=== PATIENT | female | born 1985 | race African-American/Black ===

== ENCOUNTER 2022-02-20 00:16 | Day surgery (SDC) | payer BC, SELFPAY ==
[2022-02-14 13:10] VITALS: BMI 49.6
--- NOTE | 2022-02-14 13:14 | PC.NURSE ---
Report to the Outpatient Waiting Room, entrance under the green pavilion located off [facility], at time 0630 on date 02/20/22. Planned Procedure Time: 0830. Time changes happen often and if your time is changed the preop area will call you the afternoon before. - You and your visitor will be asked to self-screen and do not enter if you have any COVID symptoms. - We encourage only one visitor and NO visitors under age 16 are allowed at this time. Your visitor will receive communication by the phone number that is given day of service. - The patient visitor is requested to social distance or may leave the building when not with patient due to restrictions. - A mask is OPTIONAL within the hospital. Patients may have clear liquids (water, carbonated beverages, clear teas, apple juice) until 3 hours prior to surgery with a maximum of 20 ounces. - No food from midnight until time of surgery Take the following medications with a SIP of water the morning of surgery: TOPIRAMATE, INHALER IF NEEDED Medications to discontinue per physician: VITAMINS/SUPPLEMENTS Date to take last dose: 02/16/22 Please no make-up, nail thai, hairspray, perfume, deodorant, or body powder the day of surgery. No jewelry (including any body piercings) or valuables the day of surgery, leave them at home. Please take a shower or bath the night before, or the morning of, surgery with an antibacterial soap. Wear comfortable, loose fitting clothing. - Jewelry must be removed prior to entering the operating room. Rings and piercings that are not removed may be cut off. - The hospital will not accept responsibility for valuables. - Please leave all valuables, including medications, at home the day of surgery. If you are going home after surgery, a licensed dump truck driver off highway must drive you home. - NO public transportation without another adult. - We recommend that an adult stay with you for 24 hours following discharge. - We also recommend that you do not drive, make important decision, drink alcoholic beverages, or take any drugs that were not prescribed by your health care provider for at least 24 hours after your discharge time. Follow any additional instructions given to you from your surgeon. If you or anyone in your household have experienced Covid symptoms in the past week, please notify your surgeon or the nurse liaison at the phone number below for possible testing. Telephone instructions given to PT - RAIN TERRY and asked if any additional questions and then verbalized understanding. Patient advised to call surgeon office or pre surgery nurse liaison [phone] if any additional questions.
[2022-02-20] MEDS: ACETAMINOPHEN 500 MG TABLET 1000 MG PO (06:31)
[2022-02-20] MEDS: LACTATED RINGERS 1,000 ML 30 ML IV CONT (06:45)
[2022-02-20 06:53] LABS: Hematocrit 36.9 % (37.0-47.0)
[2022-02-20 06:56] VITALS: BP 130/91; PULSE 77; RESP 16; TEMP 37.1; O2SAT 100
--- NOTE | 2022-02-20 07:09 | P.PNAN_ITS ---
Anes - Initial Pre Proc Eval Procedure: Operation Date: 02/20/22 08:30 Proposed Procedures p Hysteroscopy with Dilation and Curettage, Possible Myosure - Anjelica Shukla MD Date/Time: 02/20/22 07:09 Surgeon: Anjelica Shukla MD Pre Op Diagnosis: Menorrhagia, Fibroids Patient Data Age: 37 Gender: F Height: 1.6 m Weight: 134 kg Last Vital Signs Temp 37.1 C 02/20/22 06:56 Pulse 77 02/20/22 06:56 Resp 16 02/20/22 06:56 BP 130/91 H 02/20/22 06:56 Pulse Ox 100 02/20/22 06:56 O2 Del Method Room Air 02/20/22 06:56 Allergies Allergy/AdvReac Type Severity Reaction Status Date / Time corn Allergy Anaphylaxis Verified 02/20/22 06:54 Home Medications Medication Instructions Recorded Confirmed Type albuterol sulfate 90 mcg/actuation 1 inh inhalation Q4H PRN 02/14/22 02/20/22 History aerosol inhaler Bronchospasm cholecalciferol (vitamin D3) 125 125 mcg PO DAILY 02/14/22 02/20/22 History mcg (5,000 unit) tablet (Vitamin D3) dupilumab 300 mg/2 mL subcutaneous 300 mg subcut [id number] 02/14/22 02/20/22 History pen injector (Dupixent) ferrous sulfate 325 mg (65 mg 325 mg PO DAILY 02/14/22 02/20/22 History iron) tablet (Iron (ferrous sulfate)) topiramate 100 mg tablet 100 mg PO BID 02/14/22 02/20/22 History zinc acetate 50 mg (zinc) capsule 50 mg PO DAILY 02/14/22 02/20/22 History Laboratory Tests 02/20/22 06:30 Hgb 12.0 g/dL g/dL (12.0-15.0) Hct 36.9 % L % (37.0-47.0) Patient hx anesthesia problems: none Family hx anesthesia problems: none Results Review: All pre-operative results and documents have been reviewed as part of the pre- operative evaluation. [facility] Past Medical History Medical History (Updated 02/20/22 @ 07:10 by Javier Garcia DO) Anemia Anxiety Asthma Social History Social History Smoking status: Never smoker Alcohol intake: never Substance use: never Substance use type: does not use Living arrangements: with family Spiritual care concerns: No Anes - Eval Final PreProcedure Day of Procedure 02/20/22 07:09 Patient weight: super morbidly obese Heart: regular rate and rhythm Lungs: clear to auscultation Airway: Mallampati scale class II Neurological: alert and oriented Last oral intake: >/= 8 hours ASA classification: III Emergent: no Anesthetic plan: proceed Anesthesia type and monitoring: general LMA and standard monitoring Results Review: All pre-operative results and documents have been reviewed as part of the pre- operative evaluation. Informed Consent: The patient's anesthetic plan and its attendant risks and benefits were discussed with the patient/family/POA. Questions were solicited and answers provided to the satisfaction of the patient/family/POA.
--- NOTE | 2022-02-20 07:29 | WPDHPUPDATE1 ---
History and Physical Update Update Date/Time: 02/20/22 07:29 History and Physical has been reviewed, including an updated exam of the patient. There are NO changes in the patient's condition. Risks, benefits, and alternatives have been discussed and questions answered. Patient agrees to proceed with procedure.
--- NOTE | 2022-02-20 07:30 | PM.HPGS ---
History of Present Illness History of Present Illness Consent: Risks, benefits, and alternatives have been discussed and questions answered. Patient agrees to proceed with procedure. Chief complaint: Menorrhagia, Fibroids Narrative: Aguila Bhardwaj is a 37 year old female With heavy and prolonged cycles. Pelvic ultrasound shows a fibroid abutting the endometrium. Was recommended to proceed with D&C hysteroscopy and possible MyoSure. Risks of infection, bleeding, perforation, and fluid imbalance were reviewed. Possible pathology was discussed. Patient voices understanding and agrees to proceed. Review of Systems Review of Systems: not repeated day of surgery; patient states no changes in status [facility] Past Medical History Medical History (Updated 02/20/22 @ 07:31 by Anjelica Shukla MD) Anxiety Asthma Depression Social History Social History Smoking status: Never smoker Alcohol intake: never Substance use: never Substance use type: does not use Living arrangements: with family Spiritual care concerns: No Meds Home Medications and Allergies Home Medications Medication Instructions Recorded Confirmed Type albuterol sulfate 90 mcg/actuation 1 inh inhalation Q4H PRN 02/14/22 02/20/22 History aerosol inhaler Bronchospasm cholecalciferol (vitamin D3) 125 125 mcg PO DAILY 02/14/22 02/20/22 History mcg (5,000 unit) tablet (Vitamin D3) dupilumab 300 mg/2 mL subcutaneous 300 mg subcut [id number] 02/14/22 02/20/22 History pen injector (Dupixent) ferrous sulfate 325 mg (65 mg 325 mg PO DAILY 02/14/22 02/20/22 History iron) tablet (Iron (ferrous sulfate)) topiramate 100 mg tablet 100 mg PO BID 02/14/22 02/20/22 History zinc acetate 50 mg (zinc) capsule 50 mg PO DAILY 02/14/22 02/20/22 History Allergies Allergy/AdvReac Type Severity Reaction Status Date / Time corn Allergy Anaphylaxis Verified 02/20/22 06:54 Vital Signs Vital Signs - 24 hr 02/20/22 06:56 Temperature 98.7 F Pulse Rate 77 Respiratory Rate 16 Blood Pressure 130/91 H Pulse Oximetry 100 Oxygen Delivery Room Air Exam Const: General: healthy appearing and alert Orientation/consciousness: patient oriented x3 Resp: Effort & Inspection: normal respiratory effort GI: GI Palp: Yes Soft to palpation, No Tenderness to palpation present (GI) and No Palpable mass present : External Female Exam: normal external appearance Speculum Exam - Vagina: normal appearance of the vagina and normal vaginal discharge Speculum Exam - Cervix: normal appearance of the cervix Bimanual exam- vagina & uterus: uterine size normal and consistency normal Bimanual Exam- Adnexa, other: normal adnexae and No adnexal tenderness Neuro: General: patient oriented x3 Assessment and Plan Assessment and plan (1) Menorrhagia: Code(s): N92.0 - Excessive and frequent menstruation with regular cycle Status: Acute Assessment and Plan: plan is to proceed with D&C hysteroscopy and possible MyoSure (2) G6PD deficiency: Code(s): D75.A - Bnlnorw-8-fomigwffg dehydrogenase (G6PD) deficiency without anemia Status: Acute
[2022-02-20] MEDS: LIDOCAINE HCL 1% PF 30 ML VIAL 10 ML INFILTRATE (08:39)
--- NOTE | 2022-02-20 08:56 | W.PM.PROC2 ---
Procedure Note - Detailed Date of Procedure 02/20/22 Pre-op Diagnosis Menorrhagia, Fibroids Post-op Diagnosis Same Procedure Performed D&C hysteroscopy with Aveta resection of probable polyps Surgeon Anjelica Shukla MD Anesthesia MAC and Local Findings The uterus sounds to 8.5cm. The posterior wall is very thickened with what appears to be polypoid tissue. Description of Procedure The patient is taken to the operating room and placed under anesthesia in the dorsal lithotomy position. She was prepped and draped in usual sterile fashion. [place] speculum was placed in the vagina and the cervix grasped on the anterior lip tenaculum. The cervix is injected in each quadrant with 1% lidocaine. The uterus is sounded to 0.5cm. The cervix is serially dilated to a 6 Hegar. The Aveta hysteroscope is placed with the above-stated findings. The resection blade is placed and under direct visualization the posterior wall is resected. Once the wall is flat the hysteroscope was removed. The medium sharp curette is used to curette the endometrium until a good uterine cry is noted in all areas. All instruments were then removed. Sponge, needle, and instrument counts are correct per the OR staff. The patient is awakened from anesthesia and taken to recovery in stable condition. Fluid deficit is 50cc. Estimated Blood Loss 5 Drains No Packing No Pathology Yes ( Endometrial shavings and curettings) Complications No immediate complications Condition Stable Disposition PACU
[2022-02-20 09:01] VITALS: BP 127/76; PULSE 90; RESP 16; O2SAT 97
[2022-02-20 09:30] VITALS: BP 112/72; PULSE 88; RESP 16
[2022-02-20] MEDS: oxyCODONE HCL (*CRX) 5 MG TAB IR PO (09:48)
[2022-02-20 10:00] VITALS: BP 118/72; PULSE 70; RESP 20
== END 2022-02-20 10:15 | disposition home or self-care (01) ==
PROVIDERS: PCP Family Medicine; Visit Provider Obstetrics & Gynecology Gynecology
PROC: 0U5B8ZZ Destruction of Endometrium, Via Natural or Artificial Opening Endoscopic (ICD-10-PCS; CPT 58563; principal; 2022-02-20 08:30)
DX: N92.0 Excessive and frequent menstruation with regular cycle (principal); D75.A Glucose-6-phosphate dehydrogenase (G6PD) deficiency without anemia; J45.909 Unspecified asthma, uncomplicated; Z79.51 Long term (current) use of inhaled steroids; E66.01 Morbid (severe) obesity due to excess calories; Z68.43 Body mass index [BMI] 50.0-59.9, adult
CPT/HCPCS: 58558; 36415; 85014; 85018; 88305; A9270; J2250; J2704; J3010; J7120